=== PATIENT | male | born 1990 ===

== ENCOUNTER → 2017-07-12 | Outpatient (CLI) | payer BC ==
[~2017-07-12] MED LIST: ADDE30XRPT PO; ADDEXR15PT PO; AMPH20CA11 PO; AMPH20CA15 PO; ESC10 PO; METH18ERPT PO; METH20TA37 PO; METH36 PO; METH36TA2 PO; METH54TA12 PO; METHY10 PO
== END ==
LOC: LAB 10:56
PROVIDERS: ATTEND Emergency Medicine
DX: R94.6 Abnormal results of thyroid function studies (principal)
CPT/HCPCS: 36415; 84439; 84443; 84481

== ENCOUNTER → 2018-02-25 | Outpatient (CLI) | payer BC | LOC: LAB 08:43 | PROVIDERS: ATTEND Emergency Medicine | DX: F90.9 Attention-deficit hyperactivity disorder, unspecified type (principal) | CPT/HCPCS: 80305; 80324; 80359 ==